=== PATIENT | male | born 2005 | race Caucasian/White ===

== ENCOUNTER 2025-03-21 15:30 | Emergency (ER) | payer OTHER ==
[~2025-03-21] VITALS: Ht 180.3 cm; Wt 54.5 kg
[2025-03-21] MEDS ORDERED: ACETAMINOPHEN 500 MG TAB PO ONE (18:15)
[2025-03-21] MEDS ORDERED: IBUPROFEN 400 MG TAB PO ONE (18:15)
[2025-03-21 18:31] VITALS: BP 125/81
== END 2025-03-21 18:32 | disposition home or self-care (01) ==
LOC: ED 15:30
DX: M79.641 Pain in right hand (principal); M25.531 Pain in right wrist; W22.01XA Walked into wall, initial encounter
CPT/HCPCS: 73130; 99283; A9270